=== PATIENT | female | born 1985 | race Two or more races ===

== ENCOUNTER 2017-10-02 12:15 | Day surgery (SDC) | payer BC ==
[~2017-10-02] VITALS: Ht 175.3 cm; Wt 61.2 kg
[2017-10-02] VITALS (11 sets, daily range): BP systolic 101–126; BP diastolic 66–84
--- NOTE | 2017-10-02 06:39 | Anethesia Preoperative Eval ---
Anesthesia Pre-op PMH/ROS General Date of Evaluation: Oct 02, 2017 Time of Evaluation: 06:37 Anesthesiologist: reynaldo ASA Score: ASA 2 Mallampati Score Class I : Soft palate, uvula, fauces, pillars visible Class II: Soft palate, uvula, fauces visible Class III: Soft palate, base of uvula visible Class IV: Only hard plate visible Mallampati Classification: Class II Surgeon: nader Diagnosis: umbilical hernia Surgical Procedure: umbilical hernia repair Anesthesia History: none Social History: smoking Family History: no anesthesia problems Allergies: Coded Allergies: No Known Allergies (Unverified , 10/02/17) Medications: see eMAR Past Medical History Gastrointestinal/Genitourinary: Reports: other - abnormal uterine bleeding Anesthesia Pre-op Phys. Exam Physician Exam Constitutional: NAD Neurologic: CN 2-12 intact Cardiovascular: RRR Respiratory: CTA Gastrointestinal: S/NT/ND Airway Exam Mallampati Score: Class II MO: full Neck: supple TMD: 2fb ROM: full Teeth: intact Anesthesia Pre-op A/P Labs Urine Test Labs Test 10/02/17 12:15 Urine HCG, Qualitative Negative Risk Assessment & Plan Assessment: asa2 Plan: gen Status Change Before Surgery: No Pre-Antibiotics Drug: ancef 2gm Given Within 1 Hr of Incision: Yes Time Given: 14:26 ANIBAL HENDERSON Oct 02, 2017 06:39
--- NOTE | 2017-10-02 11:58 | Consultation ---
History of Present Illness General Date patient seen: Sep 05, 2017 Reason for Consultation: umbilical hernia Present Illness HPI 32 year old female seen prior in my office for evaluation of umbilical hernia. As per patient, she has been healthy and doing great until after her 3rd . She has had 3 vaginal deliveries and during last noted a umbilical/ventral defect forming. Around the end of her third she was able to note a protrusion around her umbilicus. Since it has been present and easily reducible. denies n/v/f/c. no obstructive symptoms. would like to have it evaluate and repaired. no other complaints. Allergies: Coded Allergies: No Known Allergies (Unverified , 10/02/17) Patient History History Provided By: Patient Healthcare decision maker Resuscitation status Advanced Directive on File Past Medical/Surgical History Past Medical/Surgical History: (1) H/O breast augmentation (2) Ventral hernia Review of Systems Constitutional: Denies: no symptoms, see HPI, chills, sweats, fever, malaise, weakness, other Eye: Denies: no symptoms, see HPI, eye pain, blurred vision, tearing, double vision, nose pain, nose congestion, acuity changes, discharge, other ENT: Denies: no symptoms, see HPI, ear pain, ear discharge, nose pain, nose congestion, throat pain, throat swelling, mouth pain, hearing loss, nasal discharge, other Respiratory: Denies: no symptoms, see HPI, cough, orthopnea, shortness of breath, stridor, wheezing, GARCIA, sputum, other Cardiovascular: Denies: no symptoms, see HPI, chest pain, edema, palpitations, syncope, PND, other Gastrointestinal: Denies: no symptoms, see HPI, abdominal pain, constipation, diarrhea, nausea, vomiting, melena, hematemesis, other Genitourinary: Denies: no symptoms, see HPI, discharge, dysuria, frequency, hematuria, pain, retention, incontinence, urgency, vag bleed/dc, other Musculoskeletal: Denies: no symptoms, see HPI, back pain, gout, joint pain, joint swelling, muscle pain, muscle stiffness, other Skin: Denies: no symptoms, see HPI, rash, change in color, change in hair/nails , dryness, lesions, other Psychiatric: Denies: no symptoms, see HPI, prior hx, anxiety, depressed feelings, emotional problems, SI, HI, hallucinations, other Neurological: Denies: no symptoms, see HPI, headache, numbness, paresthesia, seizure, tingling, tremors, focal weakness, syncope, dizziness, other Endocrine: Denies: no symptoms, see HPI, excessive sweating, flushing, intolerance to temperature, increased thirst, increased urine, unexplained weight loss, other Hematologic/Lymphatic: Denies: no symptoms, see HPI, anemia, blood clots, easy bleeding, easy bruising, swollen glands, diathesis, other Physical Exam General Appearance: WD/WN, no apparent distress, alert HEENT: normocephalic, atraumatic, mucous membranes moist, PERRL Neck: supple, normal inspection Respiratory/Chest: lungs clear, normal breath sounds, no respiratory distress, no accessory muscle use Cardiovascular/Chest: normal peripheral pulses, normal rate, regular rhythm, regularly irregular Abdomen: normal bowel sounds, non tender, soft, no organomegaly, no mass, other - 1-1.5cm umbilical/ventral hernia noted easily reducible. Extremities: normal range of motion, non-tender, normal inspection Skin Exam: normal pigmentation, warm/dry Neurologic: curatorial specialist II-XII grossly normal, alert, oriented x 3 Assessment/Plan Problem List: (1) Ventral hernia Assessment & Plan: 32F with umbilical/ventral hernia since 3rd . 1- 1.5cm defect identified easily reducible. Repair indicated and recommended. Patient desires repair. After long discussion with patient, she is not sure if she will have another child or not. It is in consideration but unplanned at this time. I explained to her that she could potentially develop another hernia after again. In discussing surgical management we discussed laparoscopic vs open technique , mesh vs no mesh placement, and repair vs no surgery. After all risks, benefits, and alternatives were discussed in detail we decided that for her given size, location, and history would benefit from primary open repair without mesh. consent obtained. will proceed with surgery electively on 2017 ICD Codes: K43.9 - Ventral hernia without obstruction or gangrene SNOMED: 327103810 Qualifiers: Qualified Codes: K43.9 - Ventral hernia without obstruction or gangrene Status: stable Reynaldo Portillo Oct 02, 2017 11:58
[2017-10-02] MEDS ORDERED: ceFAZolin 2gm/50ml Premix 50 ML IVPB ONE (13:00)
[2017-10-02] MEDS ORDERED: Lidocaine 1% MPF 10mg/ml 5ml ONE (14:00)
[2017-10-02] MEDS ORDERED: Midazolam 2mg/2ml Inj ONE (14:00)
[2017-10-02] MEDS ORDERED: Sterile Water Irrig 1000ml IRRIG ONE (14:00)
[2017-10-02] MEDS ORDERED: Propofol 200mg/20ml IV ONE (14:00)
[2017-10-02] MEDS ORDERED: fentaNYL 100 mcg/2 mL IV ONE (14:00)
[2017-10-02] MEDS ORDERED: LR 1000ml ONE (14:00)
[2017-10-02] MEDS ORDERED: NS Irrig 1000ml ONE (14:00)
[2017-10-02] MEDS ORDERED: EPINEPHrine 1mg/1ml Amp ONE (14:08)
[2017-10-02] MEDS ORDERED: Bupivacaine 0.25% Inj 30ml INJ ONE (14:08)
--- NOTE | 2017-10-02 14:19 | Pre-Procedure Note/Attestation ---
Pre-Procedure Note/Attestation Complete Prior to Procedure Planned Procedure: not applicable Procedure Narrative: umbilical/ventral hernia repair Indications for Procedure Pre-Operative Diagnosis: umbilical / ventral hernia Attestation I attest that I discussed the nature of the procedure; its benefits; risks and complications; and alternatives (and the risks and benefits of such alternatives ), prior to the procedure, with the patient (or the patient's legal sales donor recruitment representative). I attest that, if there was a reasonable possibility of needing a blood transfusion, the patient (or the patient's legal sales donor recruitment representative) was given the [facility] standardized written summary, pursuant to the Valdemar [place] Blood Safety Act ([place] Health and Safety Code # 1645, as amended). I attest that I re-evaluated the patient just prior to the surgery and that there has been no change in the patient's H&P, except as documented below: Reynaldo Portillo Oct 02, 2017 14:19
[2017-10-02] MEDS ORDERED: LR 1000ml 1,000 ML IVLG SCH (14:45)
[2017-10-02] MEDS ORDERED: Atropine Inj 1mg/10ml Syr IV PRN (14:45)
[2017-10-02] MEDS ORDERED: Midazolam 2mg/2ml Inj IVP PRN (14:45)
[2017-10-02] MEDS ORDERED: DiphenhydrAMINE 50mg/ml Inj IVP PRN (14:45)
[2017-10-02] MEDS ORDERED: fentaNYL 100 mcg/2 mL IV PRN (14:45)
--- NOTE | 2017-10-02 15:40 | Brief Operative Note ---
Immediate Post Operative Note Operative Note Pre-op Diagnosis: umbilical / ventral hernia Procedure: umbilical/ventral hernia repair Findings: consistent w/pre-op dx studies Surgeon: nader Anesthesia: general Specimen: yes - hernia contents Complications: none Condition: stable Fluids: see records Estimated Blood Loss: minimal Drains: none Implant(s) used?: No Reynaldo Portillo Oct 02, 2017 15:40
[2017-10-02] MEDS ORDERED: Norco 5mg/325mg tab ORAL PRN (15:45)
[2017-10-02] MEDS ORDERED: D5 1/2NS 1,000 ML IV SCH (15:45)
[2017-10-02] MEDS ORDERED: HYDROmorphone 1mg/ml Carpuject SUBQ PRN (15:45)
--- NOTE | 2017-10-02 16:05 | Immediate Post-Op Evaluation ---
Immediate Post-Op Evalulation Immediate Post-Op Evalulation Procedure: unbilical hernia repair Date of Evaluation: Oct 02, 2017 Time of Evaluation: 15:49 IV Fluids: 1000ml lr Blood Products: none Estimated Blood Loss: minimal Blood Pressure Systolic: 115 Blood Pressure Diastolic: 77 Pulse Rate: 87 Respiratory Rate: 18 O2 Sat by Pulse Oximetry: 100 Temperature (Fahrenheit): 97.5 Pain Score (1-10): 0 Nausea: No Vomiting: No Complications none Patient Status: awake, reacts, patent Hydration Status: adequate Drug: ancef 2gm Given Within 1 Hr of Incision: Yes Time Given: 14:26 ANIBAL HENDERSON Oct 02, 2017 16:05
--- NOTE | 2017-10-02 16:07 | 48 Hour Post Anesthesia Eval ---
Post Anesthesia Evaluation Procedure: unbilical hernia repair Date of Evaluation: Oct 02, 2017 Time of Evaluation: 15:51 Blood Pressure Systolic: 112 0: 71 Pulse Rate: 76 Respiratory Rate: 18 Temperature (Fahrenheit): 97.5 O2 Sat by Pulse Oximetry: 100 Airway: patent Nausea: No Vomiting: No Pain Intensity: 5 Hydration Status: adequate Cardiopulmonary Status: stable Mental Status/LOC: patient returned to baseline Post-Anesthesia Complications: none Follow-up care needed: N/A ANIBAL HENDERSON Oct 02, 2017 16:07
[2017-10-02] MEDS ORDERED: Tylenol #3 tab (300mg/30mg) ORAL PRN (17:00)
--- NOTE | 2017-10-03 02:15 | Operative Note - Dictated ---
DATE OF OPERATION: 10/02/2017 PREOPERATIVE DIAGNOSIS: Umbilical/ventral hernia. POSTOPERATIVE DIAGNOSIS: Umbilical/ventral hernia. OPERATION PERFORMED: Umbilical/ventral hernia repair. ATTENDING SURGEON: Reynaldo Portillo M.D. SURGICAL FORCEPS FABRICATOR: None. ANESTHESIOLOGIST: Lashae Jack M.D. ANESTHESIA: General ELECTRIC TOOL REPAIRER. ESTIMATED BLOOD LOSS: Minimal. IV FLUIDS: Please see anesthesia records. SPECIMENS: Hernia sac contents sent to pathology for review. COMPLICATIONS: None. CONDITION: Stable. DRAINS: None. WOUND CLASSIFICATION: Class 1. ANTIBIOTICS: A 2 g Ancef IV given one hour prior to cut time. IMPLANTS: None. INDICATIONS FOR PROCEDURE: This is a 32-year-old female, seen in clinic for evaluation of umbilical/ventral hernia. The patient states that she has been fine without any issues, but during her third , she began to notice some discomfort and some abnormalities in the mid abdominal umbilical region. During the end of her third trimester, prior to delivery, she noted her umbilicus was then protruding outwards as compared to her prior effect. She has noted some discomfort around the umbilicus and above it. Of note, on examination when seen, the patient had a supraumbilical incision and the patient initially did not recall what it was from, but at a later time discussed with her mother and as per patient, she had a supraumbilical piercing, which got infected and required incision and drainage. Given these findings and the patient's symptoms and physical examination, hernia repair was indicated and recommended. Given the two prior potential etiologies, it was thought to be either an umbilical or a ventral hernia just above the umbilicus. Risks, benefits, and alternatives were discussed with the patient in detail. We discussed laparoscopic versus open surgery as well as mesh for primary repair. The patient states that there is a possibility that her and her have considered having more children, but is currently unplanned. I explained to her placement of mesh and potential complications and after doing so, we had concluded to perform primary repair which, given the small size of the hernia approximately 1 to 1.5 cm, would be appropriate. The patient understood the potential risks of infection, bleeding, and recurrence including higher incidence or recurrence without mesh placement. After doing so, consent was obtained and surgery was proceeded for 10/02/2017. OPERATIVE NOTE: The patient was taken to the operating room and placed on the operating table in supine position with bilateral arms out. All bony prominences were well padded. Preoperative time-out was taken identifying the patient, procedure, operative staff, and surgical staff. SCDs were placed. General anesthesia was induced and the patient was intubated. The abdomen was then prepped and draped in standard surgical fashion. The patient's prior supraumbilical surgical scar and piercing site were identified. The patient's umbilical/ventral defect was noted. A vertical incision was made through the patient's umbilicus. Incision was carried down to the fascia using electrocautery. In carrying down towards the fascia, a small cystic mass-like structure was identified and likely incarcerated fat contents, which had fibrosed over time. This was sent to pathology for review and evaluation. Once this was complete, the fascial edges were identified. The fascial edges were cleaned and the small hernia sac was noted and excised. The abdomen was then easily visualized and inspected. No adhesions were noted in the vicinity. Following this, the area were cleaned off and the clean fascial edges were noted. Decision was made to begin with primary repair using multiple 0 Vicryl sutures. Once satisfactory repair was noted without tension or other abnormalities, the wound was copiously irrigated. Local anesthetic of Marcaine with epinephrine was infiltrated into the wound site and surgical incision site for the patient's comfort. Following this, we began the closure of the incision using 4-0 Monocryl subcuticular sutures, inverting in the umbilicus for a more esthetically feeling of repair. At this time, the wound was then cleansed and skin glue and dressings were applied. The patient tolerated the procedure well with no immediate postoperative complications. Reynaldo Portillo M.D. DR: Cheko JOB#: [id number] CC: JOSE ALBERTO
--- NOTE | 2017-10-03 18:03 | History & Physical ---
History and Physical History & Physicial HPI History of Present Illness General Date patient seen: Sep 05, 2017 Reason for Consultation: umbilical hernia Present Illness HPI 32 year old female seen prior in my office for evaluation of umbilical hernia. As per patient, she has been healthy and doing great until after her 3rd . She has had 3 vaginal deliveries and during last noted a umbilical/ventral defect forming. Around the end of her third she was able to note a protrusion around her umbilicus. Since it has been present and easily reducible. denies n/v/f/c. no obstructive symptoms. would like to have it evaluate and repaired. no other complaints. Allergies: Coded Allergies: No Known Allergies (Unverified , 10/02/17) Patient History History Provided By: Patient Healthcare decision maker Resuscitation status Advanced Directive on File Past Medical/Surgical History Past Medical/Surgical History: (1) H/O breast augmentation (2) Ventral hernia ROS Review of Systems Constitutional: Denies: no symptoms, see HPI, chills, sweats, fever, malaise, weakness, other Eye: Denies: no symptoms, see HPI, eye pain, blurred vision, tearing, double vision, nose pain, nose congestion, acuity changes, discharge, other ENT: Denies: no symptoms, see HPI, ear pain, ear discharge, nose pain, nose congestion, throat pain, throat swelling, mouth pain, hearing loss, nasal discharge, other Respiratory: Denies: no symptoms, see HPI, cough, orthopnea, shortness of breath, stridor, wheezing, GARCIA, sputum, other Cardiovascular: Denies: no symptoms, see HPI, chest pain, edema, palpitations, syncope, PND, other Gastrointestinal: Denies: no symptoms, see HPI, abdominal pain, constipation, diarrhea, nausea, vomiting, melena, hematemesis, other Genitourinary: Denies: no symptoms, see HPI, discharge, dysuria, frequency, hematuria, pain, retention, incontinence, urgency, vag bleed/dc, other Musculoskeletal: Denies: no symptoms, see HPI, back pain, gout, joint pain, joint swelling, muscle pain, muscle stiffness, other Skin: Denies: no symptoms, see HPI, rash, change in color, change in hair/nails , dryness, lesions, other Psychiatric: Denies: no symptoms, see HPI, prior hx, anxiety, depressed feelings, emotional problems, SI, HI, hallucinations, other Neurological: Denies: no symptoms, see HPI, headache, numbness, paresthesia, seizure, tingling, tremors, focal weakness, syncope, dizziness, other Endocrine: Denies: no symptoms, see HPI, excessive sweating, flushing, intolerance to temperature, increased thirst, increased urine, unexplained weight loss, other Hematologic/Lymphatic: Denies: no symptoms, see HPI, anemia, blood clots, easy bleeding, easy bruising, swollen glands, diathesis, other Physical Exam Physical Exam General Appearance: WD/WN, no apparent distress, alert HEENT: normocephalic, atraumatic, mucous membranes moist, PERRL Neck: supple, normal inspection Respiratory/Chest: lungs clear, normal breath sounds, no respiratory distress, no accessory muscle use Cardiovascular/Chest: normal peripheral pulses, normal rate, regular rhythm, regularly irregular Abdomen: normal bowel sounds, non tender, soft, no organomegaly, no mass, other - 1-1.5cm umbilical/ventral hernia noted easily reducible. Extremities: normal range of motion, non-tender, normal inspection Skin Exam: normal pigmentation, warm/dry Neurologic: interior design consultant II-XII grossly normal, alert, oriented x 3 Assessment/Plan Assessment/Plan Problem List: (1) Ventral hernia Assessment & Plan: 32F with umbilical/ventral hernia since 3rd . 1- 1.5cm defect identified easily reducible. Repair indicated and recommended. Patient desires repair. After long discussion with patient, she is not sure if she will have another child or not. It is in consideration but unplanned at this time. I explained to her that she could potentially develop another hernia after again. In discussing surgical management we discussed laparoscopic vs open technique , mesh vs no mesh placement, and repair vs no surgery. After all risks, benefits, and alternatives were discussed in detail we decided that for her given size, location, and history would benefit from primary open repair without mesh. consent obtained. will proceed with surgery electively on 2017 ICD Codes: K43.9 - Ventral hernia without obstruction or gangrene SNOMED: [id number] Qualifiers: Qualified Codes: K43.9 - Ventral hernia without obstruction or gangrene Status: stable Reynaldo Portillo Oct 03, 2017 18:03
== END 2017-10-02 17:45 | disposition home or self-care (01) ==
LOC: SUR 12:15 → EDSEX 13:00 → SUR 17:45
DX: K42.9 Umbilical hernia without obstruction or gangrene (principal); K43.9 Ventral hernia without obstruction or gangrene
CPT/HCPCS: 49561; 49587; 81025; J0171; J0690; J2250; J2704; J3010; J3490; J7120; 94003; 94150